=== PATIENT | female | born 1935 | race Caucasian/White ===

== ENCOUNTER 2020-06-01 09:20 | Inpatient (IN) ==
[2020-06-01 10:05] LABS: Basophils % 0.4 % (0.0-0.8); Eosinophils # 0.2 10*3/uL (0.0-0.87); Eosinophils % 3.9 % (0.00-10.9); Hematocrit 26.2 VOL% (35.7-47.0); Hemoglobin 8.4 GM/DL (12.0-16.0); Immature Granulocytes % 0.2 %; Immature Granulocytes Absolute 0.01 #; Lymphocytes # 1.1 10*3/uL (1.4-4.0); Lymphocytes % 20.5 % (21.3-54.2); Mean Corpuscular HGB Conc 32.1 GM/DL (32-36); Mean Corpuscular Volume 94.2 FL (87-102); Mean Platelet Volume 10.3 FL (9.6-12.0); Monocytes % 6.8 % (1.7-12.7); Neutrophils % 68.2 % (38.7-73.9); Platelet Count 194 T/CUMM (130-400); Red Blood Count 2.78 MC/CUMM (3.8-5.5); Red Cell Distribution Width 13.9 % (9.3-17.3); White Blood Count 5.4 T/CUMM (4-12)
[2020-06-01 10:16] LABS: PT Patient Result 11.1 SECS (9.8-11.9); Partial Thromboplastin Time 24.2 SECS (23.9-33.8)
[2020-06-01 10:23] LABS: Alanine Aminotransferase 14 U/L (13-56); Albumin 3.1 G/DL (3.4-5.0); Alkaline Phosphatase 262 U/L (45-117); Aspartate Amino Transferase 11 U/L (0-37); Bilirubin,Total < 0.39 MG/DL (0.2-1.0); Blood Urea Nitrogen 41 MG/DL (7-18); Calcium 11.1 MG/DL (8.5-10.1); Estimated Glom Filtration Rate 18 ML/MIN; Glucose 130 MG/DL (74-106); Osmolality,Calculated 292.3 MOS/KG (273-304); Total Protein 6.2 G/DL (6.4-8.3)
[2020-06-01] MEDS ORDERED: SODIUM CHLORIDE 0.9% 1,000 ML IV STA (10:37)
[2020-06-01 11:06] LABS: Apearance,Urine CLOUDY (Clear); Bacteria,Urine Moderate /HPF (Few); Bilirubin,Urine Negative (Negative); Blood, Urine Negative (Negative); Glucose,Urine (UA) Negative (Negative); Hyaline Casts,Urine 4 /LPF (0-3); Ketones,Urine Negative (Negative); Mucus,Urine Occasional /LPF (Occasional); Nitrite,Urine Negative (Negative); Protein,Urine 30 MG/DL; RBC,Urine 2 /HPF (0-4); Squamous Epithelial Cell,Urine Occasional /HPF (0-10); Urine Color Yellow (Yellow); Urine Specific Gravity 1.012 (1.001-1.035); Urine Urobilinogen < 2.0 EU/DL (0.2-1.0); WBC,Urine 43 /HPF (0-6)
[2020-06-01 11:08] LABS: Barbiturates Screen,Urine Negative (Negative); Benzodiazepines Screen,Urine Negative (Negative); Cannabinoid Screen,Urine Negative (Negative); Opiate Screen,Urine Negative (Negative); Phencyclidine Screen,Urine Negative (Negative)
[2020-06-01] MEDS ORDERED: cefTRIAXone 1,000 MG in SODIUM CHLORIDE 0.9% 100 ML IV STA (12:15)
[2020-06-01] MEDS ORDERED: cefTRIAXone 1,000 MG VIAL ONE (12:16)
[2020-06-01] MEDS ORDERED: diphenhydrAMINE 50 MG/1 ML VIAL IV STA (12:47)
[2020-06-01] MEDS ORDERED: DEXTROSE 50% 25 GM/50 ML VIAL IV PRN (12:59)
[2020-06-01] MEDS ORDERED: MORPHINE 4 MG/1 ML VIAL IV PRN (12:59)
[2020-06-01] MEDS ORDERED: GLUCAGON 1 MG VIAL IM PRN (12:59)
[2020-06-01] MEDS: MEMANTINE 10 MG TABLET PO SCH (18:54)
[2020-06-01] MEDS: SODIUM CHLORIDE 0.9% 1,000 ML IV SCH (18:54)
[2020-06-01] MEDS: OFLOXACIN 0.3% OPH SOLN 5 ML BOTTLE BOTH EYES SCH (20:40)
[2020-06-01] MEDS: HEPARIN 5,000 UNIT/1 ML VIAL SUBCUT SCH (23:03)
[2020-06-02] MEDS: hydrALAZINE 20 MG/1 ML VIAL IV PRN ×3 (00:35→20:34)
[2020-06-02] MEDS: SODIUM CHLORIDE 0.9% 1,000 ML IV SCH ×2 (03:25→20:00)
[2020-06-02 05:21] LABS: Basophils % 0.1 % (0.0-0.8); Eosinophils # 0.2 10*3/uL (0.0-0.87); Eosinophils % 2.7 % (0.00-10.9); Hematocrit 26.4 VOL% (35.7-47.0); Hemoglobin 8.8 GM/DL (12.0-16.0); Immature Granulocytes % 0.4 %; Immature Granulocytes Absolute 0.03 #; Lymphocytes # 1.1 10*3/uL (1.4-4.0); Lymphocytes % 16.7 % (21.3-54.2); Mean Corpuscular HGB Conc 33.3 GM/DL (32-36); Mean Platelet Volume 10.1 FL (9.6-12.0); Monocytes % 6.5 % (1.7-12.7); Neutrophils % 73.6 % (38.7-73.9); Platelet Count 180 T/CUMM (130-400); Red Cell Distribution Width 13.7 % (9.3-17.3); White Blood Count 6.8 T/CUMM (4-12)
[2020-06-02] MEDS: LEVOTHYROXINE 100 MCG TABLET PO SCH (05:30)
[2020-06-02] MEDS: HEPARIN 5,000 UNIT/1 ML VIAL SUBCUT SCH ×2 (05:31→14:43)
[2020-06-02 05:40] LABS: Albumin 3.1 G/DL (3.4-5.0); Bilirubin,Total 0.4 MG/DL (0.2-1.0); Calcium 11.1 MG/DL (8.5-10.1); Ferritin 95.7 ng/ml (8-252)
[2020-06-02 05:41] LABS: Risk Ratio 3.28; VLDL CHOLESTEROL 28.8 MG/DL
[2020-06-02 05:45] LABS: Free T4 (Free Thyroxine) 1.02 NG/DL (0.76-1.46); Thyroid Stimulating Hormone 0.01 uIU/ml (0.358-3.74)
[2020-06-02 05:48] LABS: Folate 8.2 NG/ML (5.4-24.0)
[2020-06-02] MEDS ORDERED: MAGNESIUM SULF RIDER 2 GM in PREMIX 1 EACH IV ONE (06:30)
[2020-06-02] MEDS ORDERED: LEVOTHYROXINE 125 MCG TABLET PO SCH (07:00)
[2020-06-02] MEDS ORDERED: SODIUM PHOSPHATE INJ 15 MMOL in SODIUM CHLORIDE 0.9% 250 ML IV ONE (08:00)
[2020-06-02] MEDS: cefTRIAXone 1,000 MG in SYRINGE 1 EACH IV SCH (08:21)
[2020-06-02] MEDS: PANTOPRAZOLE 40 MG VIAL IV SCH (09:07)
[2020-06-02] MEDS ORDERED: ZALEPLON 5 MG CAPSULE PO PRN (09:12)
[2020-06-02] MEDS: hydrALAZINE 25 MG TABLET PO SCH ×5 (10:12→22:05)
[2020-06-02] MEDS: MEMANTINE 10 MG TABLET PO SCH ×2 (10:12→17:20)
[2020-06-02] MEDS: ASPIRIN CHEW 81 MG TABLET PO SCH (10:12)
[2020-06-02] MEDS: CLOPIDOGREL 75 MG TABLET PO SCH (10:12)
[2020-06-02] MEDS: DILTIAZEM CD 240 MG CAPSULE PO SCH (10:12)
[2020-06-02] MEDS: POLYETHYLENE GLYCOL POWDER 17 GM PACK PO SCH (10:12)
[2020-06-02] MEDS: OFLOXACIN 0.3% OPH SOLN 5 ML BOTTLE BOTH EYES SCH ×3 (10:12→20:10)
[2020-06-02] MEDS: COENZYME Q10 100 MG CAPSULE PO SCH (10:12)
[2020-06-02] MEDS: SERTRALINE 100 MG TABLET PO SCH (10:13)
[2020-06-02] MEDS: buPROPion SR 100 MG TABLET PO SCH (10:13)
[2020-06-02] MEDS: OLANZapine 2.5 MG TABLET PO SCH (14:43)
[2020-06-02] MEDS: MIRTAZAPINE 15 MG TABLET PO SCH (17:20)
[2020-06-02] MEDS: OLANZapine 5 MG TABLET PO SCH (17:20)
[2020-06-02] MEDS: ROSUVASTATIN 20 MG TABLET PO SCH ×2 (20:13→22:10)
[2020-06-03] MEDS: HEPARIN 5,000 UNIT/1 ML VIAL SUBCUT SCH ×4 (00:53→21:33)
[2020-06-03] MEDS: SODIUM CHLORIDE 0.9% 1,000 ML IV SCH ×2 (05:30→23:14)
[2020-06-03] MEDS: LEVOTHYROXINE 100 MCG TABLET PO SCH (06:09)
[2020-06-03 06:30] LABS: Basophils % 0.1 % (0.0-0.8); Eosinophils # 0.1 10*3/uL (0.0-0.87); Eosinophils % 1.6 % (0.00-10.9); Hematocrit 27.3 VOL% (35.7-47.0); Hemoglobin 8.8 GM/DL (12.0-16.0); Immature Granulocytes % 0.3 %; Immature Granulocytes Absolute 0.02 #; Lymphocytes # 0.9 10*3/uL (1.4-4.0); Lymphocytes % 13.5 % (21.3-54.2); Mean Corpuscular HGB Conc 32.2 GM/DL (32-36); Mean Corpuscular Volume 94.1 FL (87-102); Mean Platelet Volume 10.5 FL (9.6-12.0); Monocytes % 7.1 % (1.7-12.7); Neutrophils % 77.4 % (38.7-73.9); Platelet Count 208 T/CUMM (130-400); Red Cell Distribution Width 14.3 % (9.3-17.3); White Blood Count 6.9 T/CUMM (4-12)
[2020-06-03 07:05] LABS: Alanine Aminotransferase 15 U/L (13-56); Alkaline Phosphatase 252 U/L (45-117); Aspartate Amino Transferase 15 U/L (0-37); Bilirubin,Total < 0.39 MG/DL (0.2-1.0); Blood Urea Nitrogen 31 MG/DL (7-18); Calcium 11.4 MG/DL (8.5-10.1); Estimated Glom Filtration Rate 22 ML/MIN; Glucose 94 MG/DL (74-106); Osmolality,Calculated 294.7 MOS/KG (273-304); Total Protein 6.3 G/DL (6.4-8.3)
[2020-06-03] MEDS ORDERED: hydrALAZINE 10 MG TABLET PO ONE (07:47)
[2020-06-03] MEDS ORDERED: MAGNESIUM HYDROXIDE SUSP 30 ML UDCUP PO ONE (07:52)
[2020-06-03] MEDS: hydrALAZINE 25 MG TABLET PO SCH ×3 (08:51→21:33)
[2020-06-03] MEDS: ASPIRIN CHEW 81 MG TABLET PO SCH (08:51)
[2020-06-03] MEDS: COENZYME Q10 100 MG CAPSULE PO SCH (08:51)
[2020-06-03] MEDS: CLOPIDOGREL 75 MG TABLET PO SCH (08:52)
[2020-06-03] MEDS: PANTOPRAZOLE 40 MG VIAL IV SCH (08:52)
[2020-06-03] MEDS: POLYETHYLENE GLYCOL POWDER 17 GM PACK PO SCH (08:52)
[2020-06-03] MEDS: OFLOXACIN 0.3% OPH SOLN 5 ML BOTTLE BOTH EYES SCH ×3 (08:52→20:48)
[2020-06-03] MEDS: MEMANTINE 10 MG TABLET PO SCH ×2 (08:52→17:44)
[2020-06-03] MEDS: DILTIAZEM CD 240 MG CAPSULE PO SCH (08:52)
[2020-06-03] MEDS: buPROPion SR 100 MG TABLET PO SCH (08:55)
[2020-06-03] MEDS: carvediloL 6.25 MG TABLET PO SCH ×2 (08:55→20:47)
[2020-06-03] MEDS: SERTRALINE 100 MG TABLET PO SCH (08:55)
[2020-06-03] MEDS: cefTRIAXone 1,000 MG in SYRINGE 1 EACH IV SCH (09:03)
[2020-06-03] MEDS ORDERED: cloNIDine 0.1 MG/24 HR PATCH TRANSDERM SCH (09:13)
[2020-06-03] MEDS: OLANZapine 2.5 MG TABLET PO SCH (14:02)
[2020-06-03] MEDS: OLANZapine 5 MG TABLET PO SCH (17:44)
[2020-06-03] MEDS: MIRTAZAPINE 15 MG TABLET PO SCH (17:44)
[2020-06-03] MEDS: ROSUVASTATIN 20 MG TABLET PO SCH (20:47)
[2020-06-03] MEDS ORDERED: BISACODYL 5 MG TABLET PO SCH (21:00)
[2020-06-04 05:59] LABS: Basophils % 0.3 % (0.0-0.8); Eosinophils % 3.6 % (0.00-10.9); Hematocrit 25.7 VOL% (35.7-47.0); Hemoglobin 8.4 GM/DL (12.0-16.0); Immature Granulocytes % 0.3 %; Lymphocytes % 17.5 % (21.3-54.2); Mean Corpuscular HGB Conc 32.7 GM/DL (32-36); Mean Corpuscular Volume 92.8 FL (87-102); Mean Platelet Volume 10.3 FL (9.6-12.0); Monocytes % 7.3 % (1.7-12.7); Platelet Count 196 T/CUMM (130-400); Red Blood Count 2.77 MC/CUMM (3.8-5.5); White Blood Count 6.7 T/CUMM (4-12)
[2020-06-04 06:00] LABS: Eosinophils # 0.2 10*3/uL (0.0-0.87); Immature Granulocytes Absolute 0.02 #; Lymphocytes # 1.2 10*3/uL (1.4-4.0)
[2020-06-04] MEDS: LEVOTHYROXINE 100 MCG TABLET PO SCH (06:25)
[2020-06-04] MEDS: hydrALAZINE 25 MG TABLET PO SCH ×3 (06:25→21:16)
[2020-06-04] MEDS: HEPARIN 5,000 UNIT/1 ML VIAL SUBCUT SCH ×3 (06:25→21:16)
[2020-06-04 06:54] LABS: Albumin 2.9 G/DL (3.4-5.0); Bilirubin,Total 0.7 MG/DL (0.2-1.0); Calcium 11.2 MG/DL (8.5-10.1); Osmolality,Calculated 293.8 MOS/KG (273-304); Total Protein 5.9 G/DL (6.4-8.3)
[2020-06-04] MEDS ORDERED: LEVOTHYROXINE 150 MCG TABLET PO SCH (08:12)
[2020-06-04] MEDS: PANTOPRAZOLE 40 MG VIAL IV SCH (09:51)
[2020-06-04] MEDS: DILTIAZEM CD 240 MG CAPSULE PO SCH (09:51)
[2020-06-04] MEDS: ASPIRIN CHEW 81 MG TABLET PO SCH (09:51)
[2020-06-04] MEDS: CLOPIDOGREL 75 MG TABLET PO SCH (09:51)
[2020-06-04] MEDS: COENZYME Q10 100 MG CAPSULE PO SCH (09:51)
[2020-06-04] MEDS: carvediloL 6.25 MG TABLET PO SCH ×2 (09:51→20:44)
[2020-06-04] MEDS: POLYETHYLENE GLYCOL POWDER 17 GM PACK PO SCH (09:51)
[2020-06-04] MEDS: OFLOXACIN 0.3% OPH SOLN 5 ML BOTTLE BOTH EYES SCH ×3 (09:51→20:45)
[2020-06-04] MEDS: MEMANTINE 10 MG TABLET PO SCH ×2 (09:51→18:00)
[2020-06-04] MEDS: buPROPion SR 100 MG TABLET PO SCH (09:52)
[2020-06-04] MEDS: SERTRALINE 100 MG TABLET PO SCH (09:52)
[2020-06-04] MEDS: cefTRIAXone 1,000 MG in SYRINGE 1 EACH IV SCH (09:53)
[2020-06-04] MEDS: ACYCLOVIR 5% OINT 15 GM TUBE TOP SCH ×4 (10:47→21:16)
[2020-06-04] MEDS: OLANZapine 2.5 MG TABLET PO SCH (14:07)
[2020-06-04] MEDS: OLANZapine 5 MG TABLET PO SCH (17:59)
[2020-06-04] MEDS: MIRTAZAPINE 15 MG TABLET PO SCH (18:00)
[2020-06-04] MEDS: SODIUM CHLORIDE 0.9% 1,000 ML IV SCH ×2 (18:34→20:45)
[2020-06-04] MEDS: ROSUVASTATIN 20 MG TABLET PO SCH (20:44)
[2020-06-04] MEDS ORDERED: CEFUROXIME 250 MG TABLET PO SCH (21:00)
[2020-06-05] MEDS: HEPARIN 5,000 UNIT/1 ML VIAL SUBCUT SCH ×2 (05:35→14:30)
[2020-06-05] MEDS: hydrALAZINE 25 MG TABLET PO SCH ×2 (05:36→14:30)
[2020-06-05] MEDS: ACYCLOVIR 5% OINT 15 GM TUBE TOP SCH ×3 (05:36→14:35)
[2020-06-05] MEDS: SERTRALINE 100 MG TABLET PO SCH (09:21)
[2020-06-05] MEDS: carvediloL 6.25 MG TABLET PO SCH (09:21)
[2020-06-05] MEDS: COENZYME Q10 100 MG CAPSULE PO SCH (09:22)
[2020-06-05] MEDS: DILTIAZEM CD 240 MG CAPSULE PO SCH (09:22)
[2020-06-05] MEDS: ASPIRIN CHEW 81 MG TABLET PO SCH (09:23)
[2020-06-05] MEDS: CLOPIDOGREL 75 MG TABLET PO SCH (09:23)
[2020-06-05] MEDS: MEMANTINE 10 MG TABLET PO SCH (09:23)
[2020-06-05] MEDS: POLYETHYLENE GLYCOL POWDER 17 GM PACK PO SCH (09:24)
[2020-06-05] MEDS: PANTOPRAZOLE 40 MG VIAL IV SCH (09:31)
[2020-06-05] MEDS: OFLOXACIN 0.3% OPH SOLN 5 ML BOTTLE BOTH EYES SCH ×2 (09:36→14:35)
[2020-06-05] MEDS: buPROPion SR 100 MG TABLET PO SCH (09:42)
[2020-06-05 11:42] VITALS: BP 154/60
[2020-06-05] MEDS: OLANZapine 2.5 MG TABLET PO SCH (14:30)
== END 2020-06-05 15:40 | DRG 65 ==
LOC: EDBD → EDUNIT# → N.ED 09:20 → N.EDINP 09:20 → N.TELES 14:52 → SUATTDRO 06-02 11:32
PROVIDERS: ADMIT Hospitalist; ATTEND Family Medicine

== ENCOUNTER 2020-06-13 10:12 | Inpatient (IN) ==
[2020-06-13] MEDS ORDERED: LEVOFLOXACIN INJ 500 MG in PREMIX 1 EACH IV STA (10:43)
[2020-06-13 11:15] LABS: Basophils % 0.3 % (0.0-0.8); Eosinophils # 0.4 10*3/uL (0.0-0.87); Eosinophils % 3.7 % (0.00-10.9); Hematocrit 35.3 VOL% (35.7-47.0); Immature Granulocytes % 0.8 %; Immature Granulocytes Absolute 0.08 #; Lymphocytes # 0.7 10*3/uL (1.4-4.0); Lymphocytes % 6.8 % (21.3-54.2); Mean Corpuscular HGB Conc 30.9 GM/DL (32-36); Mean Corpuscular Volume 98.1 FL (87-102); Mean Platelet Volume 10.1 FL (9.6-12.0); Monocytes % 4.6 % (1.7-12.7); Neutrophils % 83.8 % (38.7-73.9); Platelet Count 284 T/CUMM (130-400); Red Cell Distribution Width 14.1 % (9.3-17.3)
[2020-06-13 11:16] LABS: Hemoglobin 10.9 GM/DL (12.0-16.0); White Blood Count 10.1 T/CUMM (4-12)
[2020-06-13 11:39] LABS: Alanine Aminotransferase 27 U/L (13-56); Albumin 2.7 G/DL (3.4-5.0); Alkaline Phosphatase 233 U/L (45-117); Aspartate Amino Transferase 17 U/L (0-37); Bilirubin,Total < 0.39 MG/DL (0.2-1.0); Blood Urea Nitrogen 71 MG/DL (7-18); Calcium 11.7 MG/DL (8.5-10.1); Estimated Glom Filtration Rate 16 ML/MIN; Glucose 114 MG/DL (74-106); Total Protein 6.9 G/DL (6.4-8.3)
[2020-06-13] MEDS ORDERED: DEXTROSE 50% 25 GM/50 ML VIAL IV PRN (12:26)
[2020-06-13] MEDS ORDERED: ONDANSETRON 4 MG/2 ML VIAL IV PRN (12:26)
[2020-06-13] MEDS ORDERED: GLUCAGON 1 MG VIAL IM PRN (12:26)
[2020-06-13] MEDS ORDERED: SODIUM CHLORIDE 0.9% 1,000 ML IV SCH (12:30)
[2020-06-13 13:10] LABS: Thyroid Stimulating Hormone 0.045 uIU/ml (0.358-3.74)
[2020-06-13] MEDS: ENOXAPARIN 30 MG/0.3 ML SYRINGE SUBCUT SCH (13:42)
[2020-06-13] MEDS: PIPERACILLIN/TAZOBACTAM 3,375 MG in SODIUM CHLORIDE 0.9% 100 ML IV SCH (13:44)
[2020-06-13] MEDS ORDERED: FUROSEMIDE 40 MG/4 ML VIAL IV ONE (15:20)
[2020-06-13] MEDS: SODIUM CHLORIDE 0.9% 1,000 ML IV SCH (16:05)
[2020-06-13] MEDS: INSULIN LISPRO 100 UNIT/ML SUBCUT SCH (17:26)
[2020-06-13] MEDS: hydrALAZINE 20 MG/1 ML VIAL IV PRN (19:18)
[2020-06-14] MEDS: INSULIN LISPRO 100 UNIT/ML SUBCUT SCH ×2 (00:03→06:00)
[2020-06-14] MEDS: PIPERACILLIN/TAZOBACTAM 3,375 MG in SODIUM CHLORIDE 0.9% 100 ML IV SCH ×4 (00:07→23:55)
[2020-06-14 05:41] LABS: Basophils % 0.1 % (0.0-0.8); Eosinophils # 0.4 10*3/uL (0.0-0.87); Eosinophils % 4.3 % (0.00-10.9); Hematocrit 23.4 VOL% (35.7-47.0); Hemoglobin 7.5 GM/DL (12.0-16.0); Immature Granulocytes % 0.7 %; Immature Granulocytes Absolute 0.07 #; Mean Corpuscular HGB Conc 32.1 GM/DL (32-36); Mean Corpuscular Volume 95.5 FL (87-102); Mean Platelet Volume 10.4 FL (9.6-12.0); Monocytes % 6.9 % (1.7-12.7); Platelet Count 278 T/CUMM (130-400); Red Blood Count 2.45 MC/CUMM (3.8-5.5); Red Cell Distribution Width 13.8 % (9.3-17.3); White Blood Count 10.1 T/CUMM (4-12)
[2020-06-14 06:18] LABS: Calcium 11.3 MG/DL (8.5-10.1); Osmolality,Calculated 306.8 MOS/KG (273-304)
[2020-06-14] MEDS ORDERED: SODIUM CHLORIDE 0.9% 1,000 ML IV PRN ×2 (08:55→11:16)
[2020-06-14] MEDS ORDERED: FUROSEMIDE 20 MG/2 ML VIAL IV ONE (08:56)
[2020-06-14] MEDS: SODIUM CHLORIDE 0.9% 1,000 ML IV SCH (09:20)
[2020-06-14] MEDS: PANTOPRAZOLE 40 MG VIAL IV SCH (09:42)
[2020-06-14] MEDS: ENOXAPARIN 30 MG/0.3 ML SYRINGE SUBCUT SCH ×2 (11:22→19:24)
[2020-06-14] MEDS ORDERED: FUROSEMIDE 40 MG/4 ML VIAL IV SCH (17:00)
[2020-06-14] MEDS: hydrALAZINE 20 MG/1 ML VIAL IV PRN (19:23)
[2020-06-14] MEDS: carvediloL 3.125 MG TABLET PO SCH (21:57)
[2020-06-15 08:07] LABS: Basophils % 0.3 % (0.0-0.8); Eosinophils # 0.3 10*3/uL (0.0-0.87); Eosinophils % 2.6 % (0.00-10.9); Hematocrit 35.3 VOL% (35.7-47.0); Immature Granulocytes % 0.6 %; Immature Granulocytes Absolute 0.07 #; Lymphocytes # 1.2 10*3/uL (1.4-4.0); Lymphocytes % 9.9 % (21.3-54.2); Mean Corpuscular HGB Conc 31.7 GM/DL (32-36); Mean Corpuscular Volume 94.4 FL (87-102); Monocytes % 7.8 % (1.7-12.7); Neutrophils % 78.8 % (38.7-73.9); Platelet Count 305 T/CUMM (130-400); Red Cell Distribution Width 15.3 % (9.3-17.3); White Blood Count 11.7 T/CUMM (4-12)
[2020-06-15 08:15] LABS: Red Blood Count 3.74 MC/CUMM (3.8-5.5)
[2020-06-15 08:16] LABS: Hemoglobin 11.2 GM/DL (12.0-16.0)
[2020-06-15 08:28] LABS: Osmolality,Calculated 313.9 MOS/KG (273-304)
[2020-06-15] MEDS: carvediloL 3.125 MG TABLET PO SCH ×2 (09:21→21:59)
[2020-06-15] MEDS: PANTOPRAZOLE 40 MG VIAL IV SCH (10:37)
[2020-06-15] MEDS: hydrALAZINE 20 MG/1 ML VIAL IV PRN (10:39)
[2020-06-15] MEDS: PIPERACILLIN/TAZOBACTAM 3,375 MG in SODIUM CHLORIDE 0.9% 100 ML IV SCH (12:47)
[2020-06-15 20:45] LABS: Apearance,Urine Slightly Hazy (Clear); Bilirubin,Urine Negative (Negative); Blood, Urine Negative (Negative); Glucose,Urine (UA) Negative (Negative); Ketones,Urine Negative (Negative); Nitrite,Urine Negative (Negative); Protein,Urine 30 MG/DL; Squamous Epithelial Cell,Urine Occasional /HPF (0-10); Urine Color Yellow (Yellow); Urine Specific Gravity 1.017 (1.001-1.035); Urine Urobilinogen < 2.0 EU/DL (0.2-1.0); WBC,Urine 4 /HPF (0-6)
[2020-06-15] MEDS: SODIUM CHLORIDE 0.9% 1,000 ML IV SCH (22:00)
[2020-06-16] MEDS: PIPERACILLIN/TAZOBACTAM 3,375 MG in SODIUM CHLORIDE 0.9% 100 ML IV SCH ×3 (00:31→23:30)
[2020-06-16 07:24] LABS: Basophils % 0.2 % (0.0-0.8); Eosinophils # 0.2 10*3/uL (0.0-0.87); Eosinophils % 1.5 % (0.00-10.9); Hematocrit 36.8 VOL% (35.7-47.0); Hemoglobin 11.3 GM/DL (12.0-16.0); Immature Granulocytes % 0.7 %; Immature Granulocytes Absolute 0.12 #; Lymphocytes # 1.4 10*3/uL (1.4-4.0); Lymphocytes % 8.2 % (21.3-54.2); Mean Corpuscular HGB Conc 30.7 GM/DL (32-36); Mean Corpuscular Volume 96.8 FL (87-102); Mean Platelet Volume 10.1 FL (9.6-12.0); Monocytes % 6.2 % (1.7-12.7); Neutrophils % 83.2 % (38.7-73.9); Platelet Count 312 T/CUMM (130-400); Red Cell Distribution Width 15.4 % (9.3-17.3); White Blood Count 16.5 T/CUMM (4-12)
[2020-06-16] MEDS ORDERED: SODIUM CHLORIDE 0.45% 1,000 ML IV SCH (07:30)
[2020-06-16 07:31] LABS: Calcium 11.7 MG/DL (8.5-10.1)
[2020-06-16] MEDS: SODIUM CHLORIDE 0.9% 1,000 ML IV SCH (10:30)
[2020-06-16] MEDS: PANTOPRAZOLE 40 MG VIAL IV SCH (10:31)
[2020-06-16] MEDS: carvediloL 3.125 MG TABLET PO SCH ×2 (10:31→21:30)
[2020-06-16] MEDS: SODIUM CHLORIDE 23.4% CONC INJ 38.5 MEQ in STERILE WATER INJ 1,000 ML IV SCH ×2 (10:33→22:15)
[2020-06-16] MEDS: hydrALAZINE 20 MG/1 ML VIAL IV PRN (17:02)
[2020-06-16] MEDS ORDERED: hydrALAZINE 20 MG/1 ML VIAL IV ONE (18:34)
[2020-06-17] MEDS ORDERED: cloNIDine 0.1 MG/24 HR PATCH TRANSDERM SCH (09:00)
[2020-06-17] MEDS: PANTOPRAZOLE 40 MG VIAL IV SCH (09:58)
[2020-06-17] MEDS: carvediloL 3.125 MG TABLET PO SCH ×2 (09:58→21:10)
[2020-06-17] MEDS: SODIUM CHLORIDE 23.4% CONC INJ 38.5 MEQ in STERILE WATER INJ 1,000 ML IV SCH (11:09)
[2020-06-17] MEDS: ENOXAPARIN 30 MG/0.3 ML SYRINGE SUBCUT SCH (11:53)
[2020-06-17] MEDS: PIPERACILLIN/TAZOBACTAM 3,375 MG in SODIUM CHLORIDE 0.9% 100 ML IV SCH (11:53)
[2020-06-17] MEDS ORDERED: DEXTROSE 5% NACL 0.22% 1,000 ML IV SCH (13:00)
[2020-06-17] MEDS: DEXTROSE 5% NACL 0.22% 1,000 ML IV SCH (16:19)
[2020-06-18] MEDS: PIPERACILLIN/TAZOBACTAM 3,375 MG in SODIUM CHLORIDE 0.9% 100 ML IV SCH ×2 (00:45→12:29)
[2020-06-18] MEDS: DEXTROSE 5% NACL 0.22% 1,000 ML IV SCH ×2 (01:33→06:29)
[2020-06-18 07:57] LABS: Basophils % 0.2 % (0.0-0.8); Eosinophils # 0.8 10*3/uL (0.0-0.87); Eosinophils % 4.7 % (0.00-10.9); Hemoglobin 9.9 GM/DL (12.0-16.0); Immature Granulocytes % 0.5 %; Immature Granulocytes Absolute 0.08 #; Lymphocytes # 1.6 10*3/uL (1.4-4.0); Lymphocytes % 9.6 % (21.3-54.2); Mean Corpuscular HGB Conc 30.9 GM/DL (32-36); Mean Corpuscular Volume 96.7 FL (87-102); Mean Platelet Volume 10.7 FL (9.6-12.0); Monocytes % 3.9 % (1.7-12.7); Neutrophils % 81.1 % (38.7-73.9); Platelet Count 229 T/CUMM (130-400); Red Blood Count 3.31 MC/CUMM (3.8-5.5); Red Cell Distribution Width 15.5 % (9.3-17.3); White Blood Count 16.5 T/CUMM (4-12)
[2020-06-18 08:17] LABS: Osmolality,Calculated 346.2 MOS/KG (273-304)
[2020-06-18] MEDS: DEXTROSE 5% 1,000 ML IV SCH ×3 (09:22→23:31)
[2020-06-18] MEDS: PANTOPRAZOLE 40 MG VIAL IV SCH (09:23)
[2020-06-18] MEDS: carvediloL 3.125 MG TABLET PO SCH ×2 (09:23→21:00)
[2020-06-18] MEDS: ENOXAPARIN 30 MG/0.3 ML SYRINGE SUBCUT SCH (12:29)
[2020-06-18] MEDS ORDERED: FUROSEMIDE 20 MG/2 ML VIAL IV ONE (14:20)
[2020-06-18] MEDS ORDERED: ALBUTEROL/IPRATROPIUM 3 ML NEB RESP TX ONE (14:25)
[2020-06-18] MEDS ORDERED: ALBUTEROL/IPRATROPIUM 3 ML NEB RESP TX PRN (14:41)
[2020-06-18] MEDS ORDERED: methylPREDNISolone SOD SUC 125 MG/2 ML VIAL IV ONE (14:45)
[2020-06-18] MEDS: CLINDAMYCIN INJ 600 MG in PREMIX 1 EACH IV SCH ×2 (17:21→23:38)
[2020-06-19] MEDS: PIPERACILLIN/TAZOBACTAM 3,375 MG in SODIUM CHLORIDE 0.9% 100 ML IV SCH (00:22)
[2020-06-19 06:41] LABS: Alanine Aminotransferase 25 U/L (13-56); Alkaline Phosphatase 138 U/L (45-117); Aspartate Amino Transferase 21 U/L (0-37); Bilirubin,Total < 0.39 MG/DL (0.2-1.0); Blood Urea Nitrogen 74 MG/DL (7-18); Calcium 11.7 MG/DL (8.5-10.1); Estimated Glom Filtration Rate 13 ML/MIN; Glucose 184 MG/DL (74-106); Osmolality,Calculated 344.5 MOS/KG (273-304); Total Protein 5.5 G/DL (6.4-8.3)
[2020-06-19] MEDS: PANTOPRAZOLE 40 MG VIAL IV SCH (08:32)
[2020-06-19] MEDS: carvediloL 3.125 MG TABLET PO SCH ×2 (08:32→21:02)
[2020-06-19] MEDS: CLINDAMYCIN INJ 600 MG in PREMIX 1 EACH IV SCH ×3 (09:20→23:49)
[2020-06-19] MEDS: ENOXAPARIN 30 MG/0.3 ML SYRINGE SUBCUT SCH (12:20)
[2020-06-19] MEDS: DEXTROSE 5% 1,000 ML IV SCH ×3 (15:37→23:49)
[2020-06-20 06:59] LABS: Calcium 11.8 MG/DL (8.5-10.1); Osmolality,Calculated 323.3 MOS/KG (273-304)
[2020-06-20 07:41] LABS: Basophils % 0.2 % (0.0-0.8); Eosinophils # 0.9 10*3/uL (0.0-0.87); Eosinophils % 5.8 % (0.00-10.9); Hematocrit 31.2 VOL% (35.7-47.0); Hemoglobin 9.6 GM/DL (12.0-16.0); Immature Granulocytes % 0.4 %; Immature Granulocytes Absolute 0.06 #; Lymphocytes # 1.2 10*3/uL (1.4-4.0); Mean Corpuscular HGB Conc 30.8 GM/DL (32-36); Mean Corpuscular Volume 98.4 FL (87-102); Mean Platelet Volume 11.3 FL (9.6-12.0); Monocytes % 3.8 % (1.7-12.7); Neutrophils % 81.8 % (38.7-73.9); Platelet Count 222 T/CUMM (130-400); Red Blood Count 3.17 MC/CUMM (3.8-5.5); Red Cell Distribution Width 14.9 % (9.3-17.3); White Blood Count 14.6 T/CUMM (4-12)
[2020-06-20] MEDS: CLINDAMYCIN INJ 600 MG in PREMIX 1 EACH IV SCH (09:08)
[2020-06-20] MEDS: carvediloL 3.125 MG TABLET PO SCH (09:09)
[2020-06-20] MEDS: PANTOPRAZOLE 40 MG VIAL IV SCH (09:09)
[2020-06-20] MEDS ORDERED: LORazepam 2 MG/1 ML VIAL IV PRN (10:00)
[2020-06-20] MEDS ORDERED: MORPHINE 4 MG/1 ML VIAL IV PRN (10:00)
[2020-06-20] MEDS: DEXTROSE 5% 1,000 ML IV SCH (13:18)
[2020-06-21] MEDS: DEXTROSE 5% 1,000 ML IV SCH ×2 (02:38→17:05)
[2020-06-21] MEDS ORDERED: TUBERCULIN SKIN TEST 0.1 ML SYRINGE INTRADERM ONE (14:17)
[2020-06-22] MEDS: DEXTROSE 5% 1,000 ML IV SCH ×2 (04:01→11:45)
[2020-06-22 11:22] VITALS: BP 133/61
== END 2020-06-22 12:43 | disposition hospice, inpatient (51) | DRG 177 ==
LOC: EDBD → EDUNIT# → N.ED 10:12 → SUATTDRO 12:27 → N.EDINP 12:27 → N.3E 16:04
PROVIDERS: ADMIT Internal Medicine; ATTEND Internal Medicine